=== PATIENT | male | born 1985 | race African-American/Black ===

== ENCOUNTER 2018-07-27 01:46 | Emergency (ER) | payer SELFPAY ==
[~2018-07-27] VITALS: Ht 177.8 cm; Wt 76.2 kg
[2018-07-27 02:03] VITALS: Ht 177.8 cm; Wt 76.2 kg
[2018-07-27 03:50] VITALS: BP 107/62
== END 2018-07-27 03:50 | disposition home or self-care (01) ==
LOC: ED 01:46
DX: R06.02 Shortness of breath (principal); R51 Headache; R07.89 Other chest pain; Z88.0 Allergy status to penicillin
CPT/HCPCS: 82962; Q0092

== ENCOUNTER 2018-07-27 04:36 | Emergency (ER) | payer SELFPAY ==
[~2018-07-27] VITALS: Ht 177.8 cm; Wt 76.2 kg
[2018-07-27 06:15] VITALS: BP 110/61
== END 2018-07-27 06:15 | disposition home or self-care (01) ==
LOC: ED 04:36
DX: R06.02 Shortness of breath (principal); Z88.0 Allergy status to penicillin